=== PATIENT | female | born 1970 | race Caucasian/White ===

== ENCOUNTER 2023-04-16 12:40 | Outpatient (CLI) | payer BC, SELFPAY ==
--- NOTE | ~2023-04-16 | US_ITS ---
US breast LT limited DATE: 04/16/2023 13:24 INDICATION: Pain beneath right nipple TECHNIQUE: Real-time and color flow imaging limited to subareolar area COMPARISON: June 09, 2022 bilateral mammogram FINDINGS: No suspicious mass or shadowing or abnormal fluid collection or abscess is detected sonogra phically. IMPRESSION: BI-RADS Category 1: Negative Reviewed, dictated and finalized at [facility]. Reviewed, dictated and finalized at [facility]. [employer]
== END 2023-04-16 12:41 | disposition home or self-care (01) ==
PROVIDERS: PCP Internal Medicine; Visit Provider Obstetrics & Gynecology
DX: N61.1 Abscess of the breast and nipple (principal)
CPT/HCPCS: 76642

== ENCOUNTER 2023-08-04 08:47 | Outpatient (CLI) | payer BC, SELFPAY ==
--- NOTE | ~2023-08-04 | MM_ITS ---
EXAMINATION: MM diagnostic dinah BI w juana HISTORY: Episode of left nipple hardness and soreness March 2023, resolved after antibiotic treatm ent. TECHNIQUE: ML, MLO and CC 3-D tomosynthesis images of both breasts were performed and synthetic 2-D i mages were generated. CAD analysis was submitted and interpreted. COMPARISON: June 09ilateralmammogram 04/16/2023 limited left breast ultrasound BREAST PARENCHYMAL COMPOSITION: The breasts are almost entirely fatty. FINDINGS: No suspicious mass or architectural distortion, malignant calcification, skin thickening or retraction or significant new or developing density is detected. IMPRESSION: 1. No mammographic evidence of malignancy 2. Routine annual mammographic screening is recommended BI-RADS Category 1: Negative Reviewed, dictated and finalized at [facility].
== END 2023-08-04 08:48 ==
LOC: MICIMG 08:48
PROVIDERS: PCP Internal Medicine; Visit Provider Obstetrics & Gynecology
DX: N61.1 Abscess of the breast and nipple (principal)
CPT/HCPCS: 77062; 77066; G0279

== ENCOUNTER 2023-09-28 08:17 | Outpatient (CLI) | payer BC, SELFPAY ==
--- NOTE | 2023-10-12 14:39 | WPDHOMESLEEP ---
Sleep Study - Home Unattended Date of Study: 09/28/23 Ordering Provider: Castor HugginsMD Interpreting Provider: Nena Dominique, DO Home Sleep Study Type: Watch PAT Height: 1.57 m Weight: 106.141 kg Body Mass Index: 42.7 Neck Circumference (inches): 17 [place]: 2 Reason for Sleep Study Unrefreshing sleep Sleep History The patient is a 53-year-old female that had a sleep study ordered by her primary care physician for unrefreshing sleep.? The patient denies awakening from sleep short of breath.? She denies awakening at night with heartburn, belching or cough.? She constantly snores loudly enough that others complain.? She frequently has trouble sleeping when she has a cold.? She denies waking up gasping for air throughout the night.? She frequently has breathing problems at night observed by herself or others.? She frequently sweats excessively at night.? She denies having heart palpitations or irregular heartbeats during the night.? She denies falling asleep during the day and while driving.? She occasionally experiences loss of muscle tone when extremely emotional.? She occasionally has trouble at school or work due to sleepiness.? She denies sleep paralysis.? She constantly experiences vivid dreamlike scenes upon awakening or falling asleep.? She denies feeling afraid of going to sleep.? She denies having nightmares.? She constantly remembers her dreams.? She frequently has thoughts racing through her mind.? She rarely feels sad or depressed.? She frequently has anxiety.? She rarely has muscular tension.? She rarely notices parts of her body jerk.? She rarely kicks during the night.? She rarely has crawling and aching feelings in her legs and rarely has leg pain during the days.? She rarely grinds her teeth during sleep but occasionally awakens with morning jaw pain.? She is rarely bothered by pain during the day and rarely awakened by pain during the night.? He frequently wakes up feeling stiff in the morning.? She frequently wakes up with sore or achy muscles.? She frequently wakes up with pain in the neck, spine other joints.? She goes to bed at 10:00 p.m. on both weekdays and weekends. ?It takes her 36 minutes to fall asleep.? She wakes up 3-4 times throughout the night to urinate and is able to fall back asleep within 5 minutes.? She wakes up at 6:30 a.m. on weekdays and 8:30 a.m. on the weekends.? She typically gets 6 hours of sleep per night.? She does not stay in bed after waking up in the morning.? She currently lives with her and she denies consuming any caffeinated beverages within 2 hours of bedtime.? She denies engaging in physical exercise before bedtime.? She will watch television before asleep.? She will occasionally take naps in afternoon or the evening and they are occasionally refreshing.? She does consume caffeinated beverages throughout the day.? She quit smoking cigarettes 15 years ago.? She denies alcohol and recreational drug use. [facility] Past Medical History Medical History Anxiety disorder Hypertension Insomnia Screening mammogram for breast cancer Vaginal dryness Surgical History Surgical History History of gynecologic surgery cyst removed from L ovary History of tonsillectomy History of tubal ligation Social History Social History Smoking status: Never smoker Tobacco type: cigarettes Alcohol intake: never Substance use: never Substance use type: does not use Current Housing: Decline to Answer Concerned About Future Housing: Decline to Answer Difficulty Paying Gas/Electric Bills: Decline to Answer Difficulty Paying for Meds: Decline to Answer Currently Unemployed: Decline to Answer Education: Decline to Answer Living arrangements: with family Occupation/Education: occupation Gender identity (if verbal
[2023-10-12 14:48] VITALS: BMI 42.7
== END 2023-09-29 08:57 | disposition home or self-care (01) ==
LOC: ANHCSM 08:18
PROVIDERS: PCP Internal Medicine; Visit Provider Internal Medicine
DX: G47.9 Sleep disorder, unspecified (principal); G47.33 Obstructive sleep apnea (adult) (pediatric)
CPT/HCPCS: 95800